=== PATIENT | female | born 1990 | race Caucasian/White ===

== ENCOUNTER 2017-04-26 05:23 | Emergency (ER) | payer MEDICAID ==
[~2017-04-26] VITALS: Ht 162.6 cm; Wt 61.0 kg
[2017-04-26 05:28] VITALS: Ht 162.6 cm; Wt 61.0 kg
--- NOTE | 2017-04-26 06:31 | ERD ---
ER Documentation Chief Complaint Date/Time DATE: 04/26/17 TIME: 06:25 Chief Complaint 9 weeks , pelvic pain today states " blood streaks stools" 2 x HPI 26-year-old female who is approximately 9 weeks , presented to ED complaining of diffuse abdominal pain 2-3 days. She described the pain as "colicky", comes and goes, but worse today. She also reports blood streaks in the stools in the last 2 bowel movements. Patient reports rectal pain as well during bowel movements. Patient stated that she is frequently constipated, but denies hard stools. Denies active vaginal bleeding, or spotting last days the underwear. Denies fever or chills. Denies diarrhea. Denies dysuria. Patient is , LMP 02/18/2017. ROS All systems reviewed and are negative except as per history of present illness. Medications Home Meds Active Scripts Acetaminophen* (Tylophen*) 500 Mg Capsule, 1 CAP PO Q6H Y for PAIN AND OR ELEVATED TEMP, #20 CAP Prov:SHABBIR CHAVEZ. BAKERY DELIVERER 04/26/17 Docusate Sodium* (Colace*) 100 Mg Capsule, 100 MG PO DAILY, #30 CAP Prov:SHABBIR CHAVEZ. BAKERY DELIVERER 04/26/17 Phenylephrine HCl/[place] Butter* (Preparation H* Suppository) 1 Each Supp.rect, 1 EACH [place] BID, #15 SUPP.RECT Prov:SHABBIR CHAVEZ. BAKERY DELIVERER 04/26/17 Allergies Allergies: Coded Allergies: No Known Allergy (Unverified , 04/26/17) PMhx/Soc Medical and Surgical Hx: pt denies Medical Hx, pt denies Surgical Hx Hx Alcohol Use: No Hx Substance Use: No Hx Tobacco Use: No Smoking Status: Never smoker Physical Exam Vitals Vital Signs Date Time Temp Pulse Resp B/P Pulse Ox O2 Delivery O2 Flow Rate FiO2 04/26/17 05:28 97.9 94 20 110/68 99 Physical Exam General: Well-developed, well-nourished, conscious and coherent, in no distress Skin: Warm and dry without rash, good texture and turgor Head: Normocephalic without evidence of trauma Eyes: Sclera and conjunctivae normal; pupils equal, round, and reactive to light; extraocular movements are intact Neck: Supple without meningismus or adenopathy. Carotids are equal. Trachea midline. No bruits or JVD Chest: Normal AP diameter. Good expansion without retractions. Nontender. Lungs are clear to auscultate bilaterally with good tidal volume Heart: Regular rate and rhythm. No murmur, rub, or gallops heard Abdomen: Soft and nontender without masses, guarding, or rebound. Bowel sounds are active. No hepatosplenomegaly Back: Without spinal or CVA tenderness Pelvis: Mildly tender. : External genitalia without lesions or masses. Vaginal vault with white discharge, no blood. Cervix normal, no cervical motion tenderness noted. Rectal: Normal tone. Mild rectal wall tenderness without mass. Extremities: Full range of motion. Good strength bilaterally. No clubbing, cyanosis, or edema. Peripheral pulses are intact. Sensation intact Neuro: Alert and oriented 4, GCS 15. Cranial nerves grossly intact. Motor and sensory exams nonfocal. Moves all extremities. Speech clear. Gait normal Result Diagram: 04/26/17 0632 Results 24 hrs Laboratory Tests Test 04/26/17 06:32 White Blood Count 12.810^3/ul Red Blood Count 4.5310^6/ul Hemoglobin 12.8g/dl Hematocrit 37.0% Mean Corpuscular Volume 81.7fl Mean Corpuscular Hemoglobin 28.3pg Mean Corpuscular Hemoglobin Concent 34.6g/dl Red Cell Distribution Width 14.3% Platelet Count 63794^3/UL Mean Platelet Volume 11.1fl Neutrophils % 77.7% Lymphocytes % 12.0% Monocytes % 8.8% Eosinophils % 0.9% Basophils % 0.2% Nucleated Red Blood Cells % 0.0/100WBC Neutrophils # 9.910^3/ul Lymphocytes # 1.510^3/ul Monocytes # 1.110^3/ul Eosinophils # 0.110^3/ul Basophils # 0.010^3/ul Nucleated Red Blood Cells # 0.010^3/ul Urine Color YELLOW Urine Clarity SLIGHTLY CLOUDY Urine pH 6.0 Urine Specific Patten 1.013 Urine Ketones NEGATIVEmg/dL Urine Nitrite NEGATIVEmg/dL Urine Bilirubin NEGATIVEmg/dL Urine Urobilinogen NEGATIVEmg/dL Urine Leukocyte Esterase NEGATIVELeu/ul Urine Microscopic RBC 7/HPF Urine Microscopic WBC 1/HPF Urine Squamous Epithelial Cells FEW/HPF Urine Bacteria FEW/HPF Urine Mucus FEW/HPF Urine Hemoglobin 1+mg/dL Urine Glucose NEGATIVEmg/dL Urine Total Protein NEGATIVEmg/dl Beta HCG, Quantitative 016190.0mIU/ml PROCEDURE: Obstetrical ultrasound. CLINICAL INDICATION: Vaginal bleeding. TECHNIQUE: Multiple sonographic images of the pelvis were obtained with transabdominal technique. Images were obtained with cook scale and color Doppler. COMPARISON: No prior studies are available for comparison. FINDINGS: There is an intrauterine gestational sac with a pole identified. heart tones of 163 beats per minute are identified. The crown-rump length averages 3.06 cm, compatible with 10 weeks and 0 days. The mean sac diameter averages 4.74 cm, compatible with 10 weeks and 5 days. A yolk sac is not visualized. No subchorionic collection is identified. There is no pelvic free fluid. The right ovary is not visualized. The left ovary measures 5.5 x 4.5 x 4.8 cm and demonstrates normal flow. There is a hypoechoic cyst within the left ovary measuring 3.7 x 3.8 cm. There is no suspicious adnexal mass identified. IMPRESSION: Single live intrauterine with an estimated gestational age of 10 weeks and 3 days, with an ultrasound BRISSA of 11/19/2017. Left ovarian 3.8 cm cyst. Right ovary not visualized. .Kuldeep Espino MD, Date Time Electronically viewed and signed by .Kuldeep Espino MD, MD on 04/26/2017 07:05 .T/ CC: SHABBIR CHAVEZ BAKERY DELIVERER Procedures/MDM ED course: CBC: Mild leukocytosis of 12.8, otherwise unremarkable. Beta hC.0 UA: 1+ hemoglobin, otherwise unremarkable. Blood type: O+. RhoGAM is not indicated for patient. OB ultrasound: Single live intrauterine with estimated gestational age of 10 weeks and 3 days, heart tones 163 bpm. Left ovarian 3.8 cm cyst, right ovary not visualized. Medical decision-making: Well-appearing 26-year-old female who is approximately 10 weeks presented ED complaining of generalized pelvic pain and blood in the stool. Low suspicion for threatened , heterotopic . I suspect the abdominal pain may be due to constipation, blood in stool is from anal fissure. Medications on discharge: Tylenol, Preparation H suppository, Colace. Follow-up: Primary care provider in 2 days or return to ED if worse. Departure Diagnosis: Primary Impression: Pelvic pain complicating Additional Impression: Anal fissure Condition: Good SHABBIR CHAVEZ NP Apr 26, 2017 06:30
[2017-04-26 06:54] LABS: ADD SCAN DIFF NO
[2017-04-26 06:58] LABS: BASOPHILS % 0.2 % (0.0-2.0); EOSINOPHILS # 0.1 10^3/ul (0.0-0.5); EOSINOPHILS % 0.9 % (0.0-7.0); HEMOGLOBIN 12.8 g/dl (12.0-16.0); LYMPHOCYTES # 1.5 10^3/ul (0.8-2.9); MEAN CORPUSCULAR HEMOGLOBIN 28.3 pg (29.0-33.0); MEAN CORPUSCULAR HGB CONC 34.6 g/dl (32.0-37.0); MEAN CORPUSCULAR VOLUME 81.7 fl (82.0-101.0); MEAN PLATELET VOLUME 11.1 fl (7.4-10.4); MONOCYTE # 1.1 10^3/ul (0.3-0.9); MONOCYTES % 8.8 % (0.0-11.0); NEUTROPHIL # 9.9 10^3/ul (1.6-7.5); NEUTROPHILS % 77.7 % (39.0-77.0); PLATELET COUNT 270 10^3/UL (140-415); RED BLOOD COUNT 4.53 10^6/ul (4.20-5.40); RED CELL DISTRIBUTION WIDTH 14.3 % (11.5-14.5); WHITE BLOOD COUNT 12.8 10^3/ul (4.8-10.8)
--- NOTE | 2017-04-26 07:05 | RADRPT ---
PROCEDURE: Obstetrical ultrasound. CLINICAL INDICATION: Vaginal bleeding. TECHNIQUE: Multiple sonographic images of the pelvis were obtained with transabdominal technique. Images were obtained with cook scale and color Doppler. COMPARISON: No prior studies are available for comparison. FINDINGS: There is an intrauterine gestational sac with a pole identified. heart tones of 163 beat s per minute are identified. The crown-rump length averages 3.06 cm, compatible with 10 weeks and 0 days. The mean sac diameter averages 4.74 cm, compatible with 10 weeks and 5 days. A yolk sac is not visualized. No subchorionic collection is identified. There is no pelvic free fluid. The right ovary is not visualized. The left ovary measures 5.5 x 4.5 x 4.8 cm and demonstrates normal flow. There is a hypoechoic cyst within the left ovary measuring 3 .7 x 3.8 cm. There is no suspicious adnexal mass identified. IMPRESSION: Single live intrauterine with an estimated gestational age of 10 weeks and 3 days, with an ultrasound BRISSA of 11/19/2017. Left ovarian 3.8 cm cyst. Right ovary not visualized. .Kuldeep Espino MD, MD Date Time Electronically viewed and signed by .Kuldeep Espino MD, MD on 04/26/2017 07:05 .T/
[2017-04-26 07:15] LABS: ADD UMIC YES; UR ASCORBIC ACID NEGATIVE (NEGATIVE); UR BACTERIA FEW /HPF (NONE SEEN); UR BILIRUBIN (Dip) NEGATIVE (NEGATIVE); UR BLOOD (Dip) 1+ mg/dL (NEGATIVE); UR CLARITY SLIGHTLY CLOUDY (CLEAR); UR COLOR YELLOW (YELLOW); UR GLUCOSE (Dip) NEGATIVE (NEGATIVE); UR KETONES (Dip) NEGATIVE (NEGATIVE); UR LEUKOCYTE ESTERASE (Dip) NEGATIVE Leu/ul (NEGATIVE); UR MUCUS FEW /HPF (NONE SEEN); UR NITRITE (Dip) NEGATIVE (NEGATIVE); UR RBC 7 /HPF (0-5); UR SPECIFIC GRAVITY (Dip) 1.013 (1.003-1.030); UR SQUAMOUS EPITHELIAL CELL FEW /HPF (FEW); UR TOTAL PROTEIN (Dip) NEGATIVE (NEGATIVE); UR UROBILINOGEN (Dip) NEGATIVE (NEGATIVE)
[2017-04-26] MEDS ORDERED: DOCU-144 PO (08:31)
[2017-04-26] MEDS ORDERED: PHEN1SUP80 PR (08:31)
[2017-04-26] MEDS ORDERED: ACET500C5 PO (08:31)
[2017-04-26 08:42] VITALS: BP 108/69; PULSE 77; RESP 18; TEMP 98.1
== END 2017-04-26 08:43 | disposition home or self-care (01) ==
LOC: FTE 05:23
DX: O26.891 Other specified pregnancy related conditions, first trimester (principal); R10.2 Pelvic and perineal pain; K60.2 Anal fissure, unspecified; O99.611 Diseases of the digestive system complicating pregnancy, first trimester; Z3A.10 10 weeks gestation of pregnancy
CPT/HCPCS: 36415; 76801; 81001; 84702; 85025; 86900; 86901; Z7502

== ENCOUNTER 2017-05-15 22:07 | Emergency (ER) | payer MEDICAID ==
[~2017-05-15] VITALS: Ht 160 cm; Wt 53.5 kg
[~2017-05-15 22:07] MED LIST: ACET500C5 PO; DOCU-144 PO; PHEN1SUP80 PR
[2017-05-15 22:32] VITALS: Ht 160 cm; Wt 53.5 kg
[2017-05-15] MEDS ORDERED: ACET500C5 PO (23:23)
[2017-05-15] MEDS ORDERED: LORA10CA PO (23:29)
--- NOTE | 2017-05-15 23:29 | ERD ---
ER Documentation Chief Complaint Date/Time DATE: 05/15/17 TIME: 23:23 Chief Complaint "fever with body aches" HPI 26-year-old female patient with no significant past medical history presents to the ED states that she is currently 12 weeks presents to the ED stating that she has had a headache, cough, body aches for the last 3 days. Denies taking any medications. Denies any chest pain, shortness of breath, wheezing, abdominal pain, nausea, vomiting, diarrhea, rashes. Denies any sick contacts. ROS All systems reviewed and are negative except as per history of present illness. Medications Home Meds Active Scripts Acetaminophen* (Tylophen*) 500 Mg Capsule, 1 CAP PO Q6H Y for PAIN AND OR ELEVATED TEMP, #20 CAP Prov:SHAYLA LAWRENCE PA-C 05/15/17 Acetaminophen* (Tylophen*) 500 Mg Capsule, 1 CAP PO Q6H Y for PAIN AND OR ELEVATED TEMP, #20 CAP Prov:SHABBIR CHAVEZ. MALI 04/26/17 Docusate Sodium* (Colace*) 100 Mg Capsule, 100 MG PO DAILY, #30 CAP Prov:SHABBIR CHAVEZ. PLATE COLORER 04/26/17 Phenylephrine HCl/[place] Butter* (Preparation H* Suppository) 1 Each Supp.rect, 1 EACH [place] BID, #15 SUPP.RECT Prov:SHABBIR CHAVEZ. PLATE COLORER 04/26/17 Allergies Allergies: Coded Allergies: No Known Allergy (Unverified , 04/26/17) PMhx/Soc Medical and Surgical Hx: pt denies Medical Hx Hx Alcohol Use: No Hx Substance Use: No Hx Tobacco Use: No Physical Exam Vitals Vital Signs Date Time Temp Pulse Resp B/P Pulse Ox O2 Delivery O2 Flow Rate FiO2 05/15/17 22:32 98.4 99 18 133/77 99 Physical Exam Const: Qtr-svz-gpmvzledi, well-nourished. In no acute distress. Head: Atraumatic, normocephalic Eyes: Normal Conjunctiva without injection. No purulent discharge. PERRL. EOMI ENT: Normal external ear. Ear canal without erythema. Tympanic membrane pearly cook without effusion or bulging. Nasal canal clear with normal turbinates. Moist oropharynx without tonsillar exudates. Non-erythematous pharynx. Uvula midline. No drooling. No trismus. Neck: Full range of motion. No meningismus. No cervical lymphadenopathy. Resp: Clear to auscultation bilaterally. No wheezing, rhonchi, rales, or crackles. No accessory muscle use. No retractions. Cardio: Regular rate and rhythm. No murmurs, rubs or gallops. Abd: Soft, non tender, non distended. Normal bowel sounds. No palpable masses. No rebound tenderness. No guarding. Skin: No petechiae or rashes Back: No midline tenderness. No CVA tenderness. Ext: No cyanosis, or edema. Neur: Awake and alert. Psych: Normal Mood and Affect Procedures/MDM 26-year-old female patient with no significant past medical history presents the ED complaining of fever, body aches, dry cough that started 3 days ago. Patient is afebrile and nontoxic-appearing. Patient has normal vital signs. This patient presents to the ED with symptoms consistent with a viral acute upper respiratory infection. Patient is afebrile and has normal vital signs. Patient's physical exam include lungs which were clear to auscultation and a normal pulse oximetry. There is a low suspicion for pneumonia, pneumothorax, mononucleosis, pulmonary embolism, epiglottitis, otitis media, otitis externa, viral/strep pharyngitis, sinusitis, peritonsillar abscess, mastoiditis, retropharyngeal abscess, meningitis, sepsis, acute abdomen or other emergent conditions. Fluids, rest, and symptomatic treatment are recommended for the management of patient's symptoms. Discharge medications: Tylenol Follow up with primary care physician in 1-2 days. Instructed patient to return to the ED sooner for any worsening symptoms. Patient's questions were answered. Patient understood and agreed with discharge plan. Patient discharged stable. Departure Diagnosis: Primary Impression: Viral upper respiratory infection Condition: Stable Patient Instructions: Viral Syndrome (Adult) Referrals: [facility] Usted se oliva hecho un examen mdico de control que le indica que no est en ludwig condicin que requiera tratamiento urgente en el Departamento de Emergencia. Un estudio ms profundo y el tratamiento de rey condicin pueden esperar sin ningn riesgo hasta que usted sea atendida/o en el consultorio de rey mdico o ludwig cl nick. Es responsabilidad suya arreglar ludwig walter para el seguimiento del chano. MANEJO DE CONDICIONES NO URGENTES EN EL FUTURO 1) Si usted tiene un mdico de atencin primaria: Usted debera llamar a rey mdico de atencin primaria antes de venir al departamento de emergencia. Despus de las horas de consultorio, rey doctor o rey asociado/a est disponible por telfono. El mdico o enfermero de loreta en el servicio telefnico puede asesorarle por charisma medio para atender el problema, o chano contrario se puede programar ludwig walter. 2) Si usted no tiene un mdico de atencin primaria: Llame al mdico o clnica de referencia que aparece abajo dejah las horas de consultorio para hacer ludwig walter para que le vean. CLINICAS: [facility] [phone] [facility] [phone] [facility]. [facility] [phone] [facility] [place] [phone] [facility] [place] [id number] [phone] [facility]. [phone] [facility] () Usjonny se oliva hecho un examen mdico de control que le indica que no est en ludwig condicin que requiera tratamiento urgente en el Departamento de Emergencia. Un estudio ms profundo y el tratamiento de rey condicin pueden esperar sin ningn riesgo hasta que usted sea atendida/o en el consultorio de rey mdico o ludwig cl nick. Es responsabilidad suya arreglar ludwig walter para el seguimiento del chano. MANEJO DE CONDICIONES NO URGENTES EN EL FUTURO 1) Si usted tiene un mdico de atencin primaria: Usted debera llamar a rey mdico de atencin primaria antes de venir al departamento de emergencia. Despus de las horas de consultorio, rey doctor o rey asociado/a est disponible por telfono. El mdico o enfermero de loreta en el servicio telefnico puede asesorarle por charisma medio para atender el problema, o chano contrario se puede programar ludwig walter. 2) Si usted no tiene un mdico de atencin primaria: Llame al mdico o condado institucions de referencia que aparece abajo dejah las horas de consultorio para hacer ludwig walter para que le vean. SI USTED NO PUEDE PAGAR PARA SANDEEP UN MEDICO puede ir a: [facility] [address] [place] [address] [address] [place] [address] [facility] [address] [place] [address] [facility] [address] [place], [place] [id number] [facility] U[facility]ENT C[facility]/SPECIALTIES Additional Instructions: Llame al doctor MAANA y harman ludwig WALTER PARA DENTRO DE 2-3 ALMONTE.Dgale a la secretaria que nosotros le instruimos hacer esta walter.Avise o llame si rey condicin se empeora antes de la walter. Regresa aqui si peor o no mejor. SHAYLA LAWRENCE PA-C May 15, 2017 23:29
== END 2017-05-15 23:35 | disposition home or self-care (01) ==
LOC: FTE 22:07
DX: O99.512 Diseases of the respiratory system complicating pregnancy, second trimester (principal); J06.9 Acute upper respiratory infection, unspecified; Z3A.12 12 weeks gestation of pregnancy
CPT/HCPCS: 99283

== ENCOUNTER 2017-05-17 14:34 | Emergency (ER) | payer MEDICAID ==
[~2017-05-17] VITALS: Ht 160 cm; Wt 59.5 kg
[~2017-05-17 14:34] MED LIST changes: +LORA10CA PO
[2017-05-17 14:38] VITALS: Ht 160 cm; Wt 59.5 kg
[2017-05-17] MEDS ORDERED: ACETAMINOPHEN 325 MG TAB PO ONE (15:00)
--- NOTE | 2017-05-17 15:30 | RADRPT ---
PROCEDURE: CT Brain without contrast. CLINICAL INDICATION: Headache TECHNIQUE: CT scan of the brain was performed on a multidetector high-resolution CT scan. Axial im aging was obtained of the brain without contrast administration. Coronal and sagittal reformatted i mages were obtained from the axial source images. Standard CT scan of the head without contrast prot ocols were performed. The total exam CTDI equals 44.68 mGy and the total exam DLP equals 630.2 mGy-cm. One or more of the following dose reduction techniques were used: - Automated exposure control. - Adjustment of the mA and/or kV according to patient size. Use of iterative reconstruction technique. COMPARISON: None. FINDINGS: The ventricular system and peripheral CSF spaces are unremarkable. Negative for intracranial masses hemorrhages or midline shift. The cook-white matter differentiation is unremarkable. The bones an d calvarium are intact. There is chronic bilateral ethmoid and right sphenoid sinus disease. Remai nder the paranasal sinuses visualized are unremarkable. Mastoids are unremarkable. The bones and c alvarium are intact. IMPRESSION: 1. No evidence of intracranial masses hemorrhages or midline shift per 2. Chronic paranasal sinus disease. RPTAT:AAJJ Physician Stef Date Time Electronically viewed and signed by Physician Stef on 05/17/2017 15:30 BM/
[2017-05-17 16:06] VITALS: BP 107/68; PULSE 90; RESP 16; TEMP 98.4
--- NOTE | 2017-05-17 16:15 | ERD ---
ER Documentation Chief Complaint Date/Time DATE: 05/17/17 TIME: 16:12 Chief Complaint headache x 4 days, seen here 2 days ago HPI Patient is a 26-year-old female with no medical problems who presents with a headache. She has had a headache for the past 5 days. She says that she came 2 days ago for similar symptoms. She tried Tylenol and loratadine. She is 12 weeks . She denies fevers. She has had nausea but no vomiting or diarrhea. She denies abdominal pain or vaginal bleeding. Upon review of old medical records this is the patient's third visit to the ER since April 26 for various complaints. She does not know the name of her primary doctor. ROS All systems reviewed and are negative except as per history of present illness. Medications Home Meds Active Scripts Loratadine* (Claritin*) 10 Mg Capsule, 10 MG PO DAILY, #20 CAP Prov:SHAYLA LAWRENCE PA-C 05/15/17 Acetaminophen* (Tylophen*) 500 Mg Capsule, 1 CAP PO Q6H Y for PAIN AND OR ELEVATED TEMP, #20 CAP Prov:SHAYLA LAWRENCE PA-C 05/15/17 Acetaminophen* (Tylophen*) 500 Mg Capsule, 1 CAP PO Q6H Y for PAIN AND OR ELEVATED TEMP, #20 CAP Prov:SHABBIR CHAVEZ NP 04/26/17 Docusate Sodium* (Colace*) 100 Mg Capsule, 100 MG PO DAILY, #30 CAP Prov:SHABBIR CHAVEZ NP 04/26/17 Phenylephrine HCl/[place] Butter* (Preparation H* Suppository) 1 Each Supp.rect, 1 EACH [place] BID, #15 SUPP.RECT Prov:SHABBIR CHAVEZ NP 04/26/17 Allergies Allergies: Coded Allergies: No Known Allergy (Unverified , 04/26/17) PMhx/Soc Medical and Surgical Hx: pt denies Medical Hx, pt denies Surgical Hx Hx Alcohol Use: No Hx Substance Use: No Hx Tobacco Use: No Smoking Status: Never smoker FmHx Family History: No diabetes Physical Exam Vitals Vital Signs Date Time Temp Pulse Resp B/P Pulse Ox O2 Delivery O2 Flow Rate FiO2 05/17/17 16:06 98.4 90 16 107/68 99 Room Air 05/17/17 14:38 98.0 109 18 134/86 98 Physical Exam Const: Mild distress secondary to headache Head: Atraumatic Eyes: Normal Conjunctiva ENT: Normal External Ears, Nose and Mouth. Neck: Full range of motion..~ No meningismus. Resp: Clear to auscultation bilaterally Cardio: Regular rate and rhythm, no murmurs Abd: Soft, non tender, non distended. Normal bowel sounds Skin: No petechiae or rashes Back: No midline or flank tenderness Ext: No cyanosis, or edema Neur: Awake and alert, no slurred speech, cranial nerves II through XII intact, strength is 5 out of 5 in all 4 extremities, gait is normal Psych: Normal Mood and Affect Results 24 hrs Current Medications Medications (Trade) Dose Ordered Sig/Sonu Route PRN Reason Start Time Stop Time Status Last Admin Dose Admin Acetaminophen (Tylenol Tab) 650 mg ONCE ONCE PO 05/17/17 15:00 05/17/17 15:01 DC 05/17/17 14:56 Procedures/MDM CT brain negative per radiology. Patient is a 26-year-old female who presents with a headache. She has normal vital signs. Her CT scan of the brain shows no sign of intracranial hemorrhage or mass. At this point I doubt subarachnoid hemorrhage, meningitis, dural venous thrombosis, stroke, or other serious etiology of the headache. I am limited as to what pain medicines can be used as she is 12 weeks . I believe Tylenol would be the best course of action for her and for the baby. The patient will need to follow-up with her primary doctor within 24-48 hours. She can return sooner for any worsening symptoms. Departure Diagnosis: Primary Impression: Headache Headache type: unspecified Headache chronicity pattern: acute headache Intractability: not intractable Qualified Code: R51 - Acute nonintractable headache, unspecified headache type Condition: Fair Patient Instructions: Self-Care for Headaches Referrals: AVIVA LYNCH MD (PCP) Additional Instructions: Llame al doctor MAANA y harman ludwig WALTER PARA DENTRO DE 1-2 ALMONTE.Dgale a la secretaria que nosotros le instruimos hacer esta walter.Avise o llame si rey condicin se empeora antes de la walter. Regresa aqui si peor o no mejor. FIDELIA VILLEDA MD May 17, 2017 16:15
== END 2017-05-17 16:07 | disposition home or self-care (01) ==
LOC: FTE 14:34
DX: R51 Headache (principal)
CPT/HCPCS: 70450

== ENCOUNTER 2017-10-28 21:14 | Outpatient (CLI) | END 2017-10-28 23:20 | disposition home or self-care (01) ==

== ENCOUNTER 2017-10-28 23:19 | Emergency (ER) | END 2017-10-29 00:45 | disposition home or self-care (01) ==

== ENCOUNTER 2017-11-17 21:52 | Inpatient (IN) | END 2017-11-21 16:22 | disposition home or self-care (01) | DRG 775 ==

== ENCOUNTER 2017-12-15 12:20 | Emergency (ER) | END 2017-12-15 13:51 | disposition home or self-care (01) ==

== ENCOUNTER 2018-04-08 10:02 | Emergency (ER) | END 2018-04-08 12:11 | disposition home or self-care (01) ==